=== PATIENT | female | born 1975 | race Caucasian/White ===

== ENCOUNTER 2017-04-25 19:14 | Emergency (ER) | payer BC ==
[~2017-04-25] VITALS: Ht 167.6 cm; Wt 80.3 kg
[2017-04-25] MEDS ORDERED: IPRATRPIUM/ALBUTEROL 0.5/2.5MG 3 ML NEBU. NEB ONE (19:45)
--- NOTE | 2017-04-25 20:20 | PHYS DOC ---
Past Medical History Additional Past Medical Histor: sinusitis; early stages COPD Past Surgical History: Tubal ligation Additional Past Surgical Histo: Shoulder Smoking: Cigarettes Alcohol Use: Rarely Drug Use: None Adult General Chief Complaint Chief Complaint: HYPERTENSION HPI HPI Patient is a 42 year old female who presents with elevated blood pressure. She was seen in urgent care today for sinus pressure and was sent here due to her blood pressure being elevated. She states that she's not had a history of hypertension. She was in [place] April 05 to the in the mountains. She came back and that's when her sinus pressure started. She states that since then she did consistent sinus pressure which she states she was seen a year ago by ENT for (Dr Gamez). She also has noted some chest pain intermittently and some increase in her difficulty breathing since the trip as well. No leg pain or swelling. She states that she has "early stages of emphysema". She is a heavy smoker does have a inhaler that she uses. Presently she has no chest pain. She did no visual changes, no numbness tingling or weakness to her face or external wheeze. No difficulty walking. She has been taking [id number]-[id number] sinus medications but did state that she stopped it approximately 3 days ago. Review of Systems Review of Systems Constitutional: Denies fever or chills Eyes: Denies change in visual acuity, redness, or eye pain HENT: POS nasal congestion; no sore throat Respiratory: POS cough; no hemoptysis; POS shortness of breath and wheezing Cardiovascular: intermittent chest pain GI: Denies abdominal pain, nausea, vomiting, bloody stools or diarrhea : Denies dysuria or hematuria Musculoskeletal: Denies back pain or joint pain Integument: Denies rash or skin lesions Neurologic: Denies headache, focal weakness or sensory changes. Family History Family History Hypertension and heart disease (remote) Current Medications Current Medications Current Medications Medications (Trade) Dose Ordered Sig/Cynthia Start Time Stop Time Status Last Admin Dose Admin Albuterol/ Ipratropium (Duoneb) 3 ml 1X ONCE 04/25/17 19:45 04/25/17 19:47 DC 04/25/17 20:04 3 ML Allergies Allergies Allergies Coded Allergies Type Severity Reaction Last Updated Verified No Known Drug Allergies 04/25/17 No Physical Exam Physical Exam Constitutional: Well developed, well nourished, no acute distress, non-toxic appearance. HENT: Normocephalic, atraumatic, bilateral external ears normal, oropharynx moist, no oral exudates, nose normal. Eyes: PERRLA, EOMI, conjunctiva normal, no discharge. Neck: Normal range of motion, no tenderness, supple, no stridor. Cardiovascular:Heart rate regular rhythm, no murmur Lungs & Thorax: Bilateral breath sounds equal. Coarse rhonchi and wheezing. Abdomen: Bowel sounds normal, soft, no tenderness, no masses, no pulsatile masses. Skin: Warm, dry, no erythema, no rash. Back: No tenderness, no CVA tenderness. Extremities: No tenderness, no cyanosis, no clubbing, ROM intact, no edema. Neurologic: Alert and oriented X 3, normal motor function, normal sensory function, no focal deficits noted. Psychologic: Affect normal, judgement normal, mood normal. Current Patient Data Vital Signs Vital Signs Date Time Temp Pulse Resp B/P (MAP) Pulse Ox O2 Delivery O2 Flow Rate FiO2 04/25/17 20:05 98 Room Air 04/25/17 19:29 75 18 165/97 (119) Lab Values Laboratory Tests Test 04/25/17 19:58 04/25/17 20:17 POC Urine HCG, Qualitative Hcg negative (Negative) White Blood Count 10.8 x10^3/uL (4.0-11.0) Red Blood Count 4.59 x10^6/uL (3.50-5.40) Hemoglobin 14.7 g/dL (12.0-15.5) Hematocrit 42.1 % (36.0-47.0) Mean Corpuscular Volume 92 fL (79-100) Mean Corpuscular Hemoglobin 32 pg (25-35) Mean Corpuscular Hemoglobin Concent 35 g/dL (31-37) Red Cell Distribution Width 13.4 % (11.5-14.5) Platelet Count 234 x10^3/uL (140-400) Neutrophils (%) (Auto) 59 % (31-73) Lymphocytes (%) (Auto) 32 % (24-48) Monocytes (%) (Auto) 6 % (0-9) Eosinophils (%) (Auto) 2 % (0-3) Basophils (%) (Auto) 1 % (0-3) Neutrophils # (Auto) 6.4 x10^3uL (1.8-7.7) Lymphocytes # (Auto) 3.5 x10^3/uL (1.0-4.8) Monocytes # (Auto) 0.7 x10^3/uL (0.0-1.1) Eosinophils # (Auto) 0.2 x10^3/uL (0.0-0.7) Basophils # (Auto) 0.1 x10^3/uL (0.0-0.2) D-Dimer (Billie) 0.27 ug/mlFEU (0.00-0.50) Sodium Level 139 mmol/L (136-145) Potassium Level 3.9 mmol/L (3.5-5.1) Chloride Level 103 mmol/L (98-107) Carbon Dioxide Level 29 mmol/L (21-32) Anion Gap 7 (6-14) Blood Urea Nitrogen 15 mg/dL (7-20) Creatinine 0.8 mg/dL (0.6-1.0) Estimated GFR (Cockcroft-Gault) 79.0 BUN/Creatinine Ratio 19 (6-20) Glucose Level 94 mg/dL (70-99) Calcium Level 9.0 mg/dL (8.5-10.1) Total Bilirubin 0.2 mg/dL (0.2-1.0) Aspartate Amino Transferase (AST) 18 U/L (15-37) Alanine Aminotransferase (ALT) 30 U/L (14-59) Alkaline Phosphatase 95 U/L (46-116) Creatine Kinase 71 U/L (26-192) Creatine Kinase MB (Mass) < 0.5 ng/mL (0.0-3.6) Creatine Kinase MB Relative Index 0.7 % (0-4) Troponin I Quantitative < 0.017 ng/mL (0.000-0.055) HO-Wys-R-Type Natriuretic Peptide 74 pg/mL (0-124) Total Protein 7.3 g/dL (6.4-8.2) Albumin 4.1 g/dL (3.4-5.0) Albumin/Globulin Ratio 1.3 (1.0-1.7) Laboratory Tests 04/25/17 20:17 Laboratory Tests 04/25/17 20:17 EKG EKG EKG interpreted by myself at 1950 PM shows normal sinus rhythm, rate 65, nonspecific ST changes. No ST elevation. Radiology/Procedures Radiology/Procedures Chest x-ray interpreted by myself at 2020 PM slight increase in vascular markings. Since. Normal cardiac silhouette. No pleural effusion. No pneumothorax. [facility] [address] [place] [address] IMAGING REPORT Signed PATIENT: SRIDEVI DALTON ACCOUNT: [id number] : 1975 LOCATION: ER AGE: 42 SEX: F EXAM STATUS: PRE ER ORD. PHYSICIAN: SANYA CHACON MD REASON: sinus pressure PROCEDURE: CT MAXILLOFACIAL WO CONTRAST PQRS Compliance Statement: One or more of the following individualized dose reduction techniques were utilized for this examination: 1. Automated exposure control 2. Adjustment of the mA and/or kV according to patient size 3. Use of iterative reconstruction technique CT HEAD, MAXILLOFACIAL WITHOUT CONTRAST History: SINUS PRESSURE, elevated blood pressure Comparison: None. Procedure: Axial images are obtained of the head from the skull base through the vertex without IV contrast. Helical CT imaging of the facial bones is performed without IV contrast. Findings: The ventricles and sulci are normal for the patient's age. No mass-effect, midline shift, hemorrhage or obvious acute infarction is identified. Basilar cisterns are patent. Bone windows demonstrate no significant calvarial abnormality. No acute facial bone fracture. There is a large mucous retention cyst or polyp in the left maxillary sinus inferiorly measuring about 2.8 cm. There is minimal mucosal thickening in the bilateral sphenoid sinuses. No air-fluid level is identified. Mastoid air cells are well aerated. There is mild leftward deviation of the bony nasal septum. The ostiomeatal complexes are narrow but patent. IMPRESSION: 1. No acute intracranial abnormality. 2. Large mucous retention cyst or polyp in the left maxillary sinus. No evidence of acute sinusitis. Electronically signed by: Dave Howard MD (04/25/2017 8:55 PM) [facility] DICTATED and SIGNED BY: DAVE HOWARD MD DATE: 04/25/172050 CC: SANYA CHACON MD; Roldan DO MD ~ Course & Med Decision Making Course & Med Decision Making Differential diagnosis for chest pain includes but is not limited to: Pericarditis, myocarditis, endocarditis, pneumothorax, pneumonia, aortic dissection, esophageal spasm, esophagitis, peptic ulcer disease, acute coronary syndrome, mediastinitis, Boerhaave syndrome, musculoskeletal chest wall pain, costochondritis, intercostal strain, rib fracture, pulmonary contusion, pneumonitis, pleural effusion, pericardial effusion, pericardial tamponode, and pleurisy. Duoneb dosed here. May be related to recent high altitude. At 2105 PM: CT results negative. D dimer negative. Cardiac enzymes and BNP normal. Reviewed findings with patient. She is to stop all OTC sinus/cold preparations. She can use saline nasal sprays for symptomatic relief. She does not meet criteria for antibiotic usage as she has no evidence of sinusitis on CT imaging. She was dosed once here with lisinopril 10 mg and hydrochlorothiazide 12.5 mg. She may indeed have a little fluid from her recent high-altitude visit. She currently has no evidence however of acute congestive heart failure, high-altitude sickness, or pulmonary emboli. She is to call Dr. Do in the morning to set up for re-check on her blood pressure. She understands this must be performed in the next several days. Spouse was present during this discussion as well. Also discussed tobacco cessation. MACE Scoring: History: Highly suspicious (2 points); Moderately suspicious (1 point). Slightly suspicious (0 point). EKG: ST segment depression (2 points). Nonspecific repolarization disturbance ( 1 point). normal (0 point) Age: Greater than 65 (2 points), 65-45 (1 point); less than 45 years old (0 points). Risk factors:> 3 risk factors (2 points), 1-2 risk factors (one point), no risk factors (0 point). Troponin: > 2 times normal (2 points), 1-2 times normal (1 point) normal limits (0 point) Total score: ___1___ Score % pts MACE/n MACE Policy 0-3: 32% 1.9% 0.05% Discharge 4-6: 51% 413/3136 13% 1.3% Observation Risk management 7-10: 17% 518/1045 50% 2.8% Observation Treatment, CAGb DAYANARA score for NSTEMI: Age 65: No=0; Yes=1 3 CAD risk factors: Family history of CAD, hypertension, hypercholesterolemia, diabetes, family history of CAD, or current smoker: No=0; Yes=1 Known CAD (stenosis 50%: No=0; Yes=1 ASA use in past 7 days: No=0; Yes=1 Severe angina ( 2 episodes in 24 hrs): No=0; Yes=[address] changes 0.5m: No=0; Yes=1 Positive cardiac marker: No=0; Yes=1 Score:1 PERC RULE Criteria: Age < than 50 years-YES Heart rate < 100-YES Oxygen saturation > 95%-YES No hemoptysis-YES No estrogen use-YES No prior DVT or PE-YES No unilateral leg swelling-YES No surgery or trauma requiring hospitalization within the prior 4 weeks (Travel) I have spoken with the patient and/or caregivers. I have explained the patient' s condition, diagnosis and treatment plan based on the information available to me at this time. I have answered the patient's and/or caregiver's questions and addressed any concerns. The patient and/or caregivers have as good an understanding of the patient's diagnosis, condition and treatment plan as can be expected at this point. The patient's condition is stable and appropriate for discharge from the emergency department. The patient will pursue further outpatient evaluation with the primary care physician or other designated or consulting physician as outlined in the discharge instructions. The patient and/or caregivers are agreeable to this plan of care and follow-up instructions have been explained in detail. The patient and/or caregivers have received these instructions in written format and have expressed an understanding of the discharge instructions. The patient and/or caregivers are aware that any significant change in condition or worsening of symptoms should prompt an immediate return to this or the closest emergency department or a call to 911. Dragon Disclaimer Dragon Disclaimer This electronic medical record was generated, in whole or in part, using a voice recognition dictation system. Departure Departure Impression: Primary Impression: Elevated blood pressure reading Additional Impression: Sinus congestion Disposition: 01 HOME, SELF-CARE Condition: STABLE Referrals: Roldan DO MD (PCP) Additional Instructions: YOUR BLOOD PRESSURE WAS ELEVATED HERE. YOUR TESTS HERE SHOW NO ACUTE CARDIAC OR PULMONARY EVENT. YOU WERE GIVEN A ONE TIME DOSE OF MEDICATIONS TONIGHT TO LOWER YOUR PRESSURE. CALL DR DO IN THE AM TO SET UP A REPEAT EXAM AND BLOOD PRESSURE READING. DO NOT TAKE ANYMORE OVER THE COUNTER SINUS MEDS. YOU CAN USE SALINE SINUS RINSES. Problem Qualifiers SANYA CHACON MD Apr 25, 2017 20:20
[2017-04-25 20:23] LABS: BASO # 0.1 x10^3/uL (0.0-0.2); BASO % 1 % (0-3); EOS % 2 % (0-3); HEMATOCRIT 42.1 % (36.0-47.0); HEMOGLOBIN 14.7 g/dL (12.0-15.5); LYMPH # 3.5 x10^3/uL (1.0-4.8); LYMPH % 32 % (24-48); MEAN CORPUSCULAR HEMOGLOBIN 32 pg (25-35); MEAN CORPUSCULAR HGB CONC 35 g/dL (31-37); MEAN CORPUSCULAR VOLUME 92 fL (79-100); MONO % 6 % (0-9); NEUT % 59 % (31-73); PLATELET COUNT 234 x10^3/uL (140-400); RED BLOOD COUNT 4.59 x10^6/uL (3.50-5.40); RED CELL DISTRIBUTION WIDTH 13.4 % (11.5-14.5); WHITE BLOOD COUNT 10.8 x10^3/uL (4.0-11.0)
[2017-04-25 20:49] LABS: ALBUMIN 4.1 g/dL (3.4-5.0); ALBUMIN/GLOBULIN RATIO 1.3 (1.0-1.7); CREATININE 0.8 mg/dL (0.6-1.0); POTASSIUM 3.9 mmol/L (3.5-5.1); TOTAL BILIRUBIN 0.2 mg/dL (0.2-1.0); TOTAL PROTEIN 7.3 g/dL (6.4-8.2)
[2017-04-25 20:52] LABS: CREATINE KINASE 71 U/L (26-192)
[2017-04-25 20:54] LABS: CKMB MASS < 0.5 ng/mL (0.0-3.6)
--- NOTE | 2017-04-25 20:58 | RAD ---
RS Compliance Statement: One or more of the following individualized dose reduction techniques were utilized for this examination: 1. Automated exposure control 2. Adjustment of the mA and/or kV according to patient size 3. Use of iterative reconstruction technique CT HEAD, MAXILLOFACIAL WITHOUT CONTRAST History: SINUS PRESSURE, elevated blood pressure Comparison: None. Procedure: Axial images are obtained of the head from the skull base through the vertex without IV contrast. Helical CT imaging of the facial bones is performed without IV contrast. Findings: The ventricles and sulci are normal for the patient's age. No mass-effect, midline shift, hemorrhage or obvious acute infarction is identified. Basilar cisterns are patent. Bone windows demonstrate no significant calvarial abnormality. No acute facial bone fracture. There is a large mucous retention cyst or polyp in the left maxillary sinus inferiorly measuring about 2.8 cm. There is minimal mucosal thickening in the bilateral sphenoid sinuses. No air-fluid level is identified. Mastoid air cells are well aerated. There is mild leftward deviation of the bony nasal septum. The ostiomeatal complexes are narrow but patent. IMPRESSION: 1. No acute intracranial abnormality. 2. Large mucous retention cyst or polyp in the left maxillary sinus. No evidence of acute sinusitis. Electronically signed by: Dave Howard MD (04/25/2017 8:55 PM) [facility]
[2017-04-25] MEDS ORDERED: LISINOPRIL 10 MG TABLET PO ONE (21:15)
[2017-04-25] MEDS ORDERED: hydroCHLOROthiazide 12.5 MG CAPSULE PO ONE (21:15)
[2017-04-25 21:20] VITALS: BP 156/94
--- NOTE | 2017-04-26 08:02 | RAD ---
Indication: Hypertension. Intermittent chest pain for 3 to 4 days. Technique: Upright portable chest radiograph was obtained. No comparison is available. Findings: The lungs are clear. The cardiopulmonary silhouette is within normal limits. The bony structures are intact. Impression: No active pulmonary disease.
--- NOTE | 2017-04-26 08:12 | EKG ---
[facility] [address] [place] [address] Test Date: 2017-04-25 Test Time: 19:50:55 Pat Name: SRIDEVI DALTON Department: Room: Gender: F Deicer Tester: LULY : 1975 Requested By: SANYA CHACON Order Number: [id number] Reading MD: Measurements Intervals [place] Rate: 65 P: 46 ID: [id number] QRS: 48 QRSD: 82 T: 66 QT: 396 QTc: 417 Interpretive Statements SINUS RHYTHM QRS(T) CONTOUR ABNORMALITY CANNOT RULE OUT ANTEROSEPTAL MYOCARDIAL DAMAGE RI6.01 Unconfirmed report No previous ECG available for comparison
== END 2017-04-25 21:35 | disposition home or self-care (01) ==
LOC: ER 19:14
DX: I10 Essential (primary) hypertension (principal); R09.81 Nasal congestion; J44.9 Chronic obstructive pulmonary disease, unspecified; F17.210 Nicotine dependence, cigarettes, uncomplicated
CPT/HCPCS: 36415; 70450; 70486; 71010; 80053; 81025; 82553; 83880; 84484; 85025; 85379; 93005; 94250; 94640; 99285; J7620

== ENCOUNTER → 2018-03-24 | Outpatient (CLI) | payer BC ==
--- NOTE | 2018-03-24 13:47 | KCIC ---
CT of the abdomen and pelvis with oral contrast only 03/24/2018 INDICATION: Generalized abdominal pain. COMPARISON STUDY: None available TECHNIQUE: Multidetector CT imaging of the abdomen and pelvis was obtained following the administration of enteric contrast. FINDINGS: Visualized lung bases are unremarkable. Calcified granuloma noted in left lower lobe. The liver has an unremarkable noncontrast enhanced appearance. There is a large calcified stone in the gallbladder lumen. The gallbladder wall appears to be possibly thickened. A scant amount of pericholecystic fluid is difficult to completely exclude. Findings may represent acute calculus cholecystitis. Correlate with clinical findings. The adrenal glands are unremarkable. The spleen is within normal limits. Evaluation of the kidneys is limited without contrast. The right kidney is lobulated in contour which is nonspecific. Left kidney is unremarkable. The pancreas is unremarkable. There is no bowel obstruction. The appendix is unremarkable. The bladder is unremarkable. There is a bilobulated cystic structure posterior to the right adnexa measuring approximately 1.5 cm, and 1.6 cm which may represent a small pelvic inclusion cyst. The superior aspect of this structure is noted to abut the rectum. Lymphadenopathy is considered less likely given the attenuation characteristics. No significant free fluid or free air is seen in the abdomen or pelvis. IMPRESSION: 1.Large peripherally calcified stone within the gallbladder lumen. Possible gallbladder wall thickening. Trace pericholecystic fluid not excluded. Correlate with clinical evidence of acute calculus cholecystitis. Consider ultrasound for further evaluation as clinically indicated. 2. Small multilobulated cystic structure posterior to the right adnexa. Findings may represent a pelvic inclusion cyst. Lymphadenopathy is considered less likely. Ultrasound versus contrast enhanced exam of the pelvis may be helpful. Findings discussed with the ordering physician at 1:[address] DOSING PQRS STATEMENT: One or more of the following individualized dose reduction techniques were utilized for this examination: 1. Automated exposure control 2. Adjustment of the mA and/or kV according to patient size 3. Use of iterative reconstruction technique Electronically signed by: Gael Rowe MD (03/24/2018 1:44 PM) [facility]
== END | disposition home or self-care (01) ==
LOC: KCIC CT 10:50
PROVIDERS: ATTEND Family Medicine
DX: K80.20 Calculus of gallbladder without cholecystitis without obstruction (principal); I10 Essential (primary) hypertension; J44.9 Chronic obstructive pulmonary disease, unspecified; N83.8 Other noninflammatory disorders of ovary, fallopian tube and broad ligament; Z87.891 Personal history of nicotine dependence
CPT/HCPCS: 74176

== ENCOUNTER 2018-04-06 07:34 | Day surgery (SDC) | payer BC ==
[~2018-04-06] VITALS: Ht 167.6 cm; Wt 76.2 kg
[~2018-04-06 07:34] MED LIST: BUPIVAC MPF-EPI 0.5%-1:200000 30 ML VIAL. ONE; HYDROmorphone 2 MG/ML VIAL IV PRN; IOHEXOL 300 MG/ML 100ML VIAL. ONE; IV RINGERS,LACTATED 1000ML 1,000 ML IV SCH; LIDOCAINE 1% PF 2 ML VIAL. ID PRN; MORPHINE SULFATE 2 MG/ML VIAL. IV PRN; ONDANSETRON PF 4 MG/2 ML VIAL. IV PRN; PROCHLORPERAZINE 10 MG/2 ML VIAL. IV PRN; SURGICEL HEMOSTAT 4X8 EACH. ONE; fentaNYL PF VIAL 100 MCG/2 ML VIAL IV PRN
[2018-04-06] MEDS ORDERED: LISI1TAB3 PO (08:14)
[2018-04-06] MEDS ORDERED: RANI150T2 PO (08:14)
[2018-04-06] MEDS ORDERED: BUDE10.2 IH (08:14)
[2018-04-06] MEDS ORDERED: ALBU8.5H8 IH (08:14)
[2018-04-06 08:24] LABS: U PREG PATIENT NEGATIVE (NEG)
[2018-04-06] MEDS ORDERED: ONDANSETRON PF 4 MG/2 ML VIAL. ONE (08:27)
[2018-04-06] MEDS ORDERED: fentaNYL PF VIAL 100 MCG/2 ML VIAL ONE ×2 (08:27→09:54)
[2018-04-06] MEDS ORDERED: DEXAMETHASONE SOD PHOS 20 MG/5 ML VIAL. ONE (08:27)
[2018-04-06] MEDS ORDERED: ROCURONIUM 50 MG/5 ML VIAL. ONE (08:27)
[2018-04-06] MEDS ORDERED: PROPOFOL 20 ML IV ONE (08:27)
[2018-04-06] MEDS ORDERED: MIDAZOLAM HCL/PF 2 MG/2 ML VIAL. ONE (08:27)
[2018-04-06] MEDS ORDERED: ESMOLOL 100 MG/10 ML VIAL. IV ONE (08:53)
[2018-04-06] MEDS ORDERED: NEOSTIGMINE METHYLSULFATE 5 MG/5 ML SYRINGE. ONE (09:17)
[2018-04-06] MEDS ORDERED: GLYCOPYRROLATE 1 MG/5 ML VIAL. ONE (09:18)
[2018-04-06] MEDS ORDERED: SEVOFLURANE 61 TO 120 MINUTES. IH ONE (09:20)
--- NOTE | 2018-04-06 09:38 | PDOC4 ---
Operative Note Operative Note Date: 04/06/2018 Preoperative diagnosis: Chronic cholecystitis with cholelithiasis Postoperative diagnosis: Same Procedure: Laparoscopic cholecystectomy Surgeon: Maury Specimen: Gallbladder Dictation: Patient is a 43-year-old female who's had right upper quadrant abdominal pain ultrasound showing gallstones procedure of laparoscopic cholecystectomy was explained to the patient detail was benefits were also discussed including bleeding infection alternatives to this procedure also discussed with patient seemed understanding gave both verbal and written consent had procedure performed. Patient was taken to the operating room placed in supine position general anesthesia was initiated once patient was asleep and intubated her abdomen was prepped and draped usual sterile fashion using ChloraPrep and area just below the umbilicus was injected with quarter percent Marcaine with epinephrine vision was made lead blade scalpel varies needle was placed within the abdomen creating pneumoperitoneum once this complete a 11 mm port was placed and a 5 mm camera was placed within the abdomen which was inspected no other at maladies were noted at this point a 5 mm port was placed in the epigastrium a second port was placed in the right lateral abdomen and one in the right mid abdomen. The dome of the gallbladder's grasped retracted cephalad the infundibulum of the gallbladder's grasped retracted laterally exposing the triangle adherent tissues of the triangle are taken down exposing the cystic duct and cystic artery both were doubly clipped and transected the gallbladder was taken off the liver with hook left cautery placed in Endo Catch bag and removed from the umbilicus right upper quadrant was irrigated and suctioned dry hemostasis deemed to be appropriate and the pneumoperitoneum was reduced. Defect at the umbilicus closed [id number] 0 Vicryl suture and the skin was approximated all port sites 4 septic or Monocryl Mastisol Steri-Strips and island dressings were applied. Patient was awakened and expanded in the operating room taken recovery in stable condition all sponge instrument needle counts listed as correct estimated blood loss 10 mL EDWIGE ALBRIGHT MD Apr 06, 2018 09:38
--- NOTE | 2018-04-06 09:39 | DISCH ---
DISCHARGE INSTRUCTIONS Condition on Discharge Condition on Discharge: Stable Activity After Discharge Activity Instructions for Disc: Avoid exertion Other activity instructions: no lifting greater than 20 pounds for 2 weeks Diet after Discharge Diet after Discharge: Low Fat Wound Incision Care Other wound/incision instructi: a shower in 24 hours Contacting the DREnder after DC Call your doctor for: If your condition worsens Follow-Up Follow up with: after Maury in 2 weeks EDWIGE ALBRIGHT MD Apr 06, 2018 09:39
[2018-04-06] MEDS ORDERED: oxyCODONE/APAP 5/325 1 TAB TABLET PO ONE ×2 (10:00)
[2018-04-06 10:33] VITALS: BP 154/74
--- NOTE | 2018-04-10 10:08 | PATHOLOGY ---
[facility] Accession Number: [id number] . 01 Material submitted: . GALLBLADDER . 01 Clinician provided ICD-10: K81.9 . 01 Clinical history: . Cholecystitis . 02 Diagnosis: Gallbladder, laparoscopic cholecystectomy: - Cholelithiasis. - Chronic cholecystitis. - Reactive changes of gallbladder neck lymph node. [facility]/04/07/2018 . 02 Comment: There is no evidence of malignancy. (JPM:[facility] 04/07/2018) . 02 Electronically signed: . Heath Womack MD, Pathologist NPI- [id number] . 01 Gross description: . The specimen is received in formalin, labeled "Carito Castro, gallbladder", is a distended 7.4 x 3.5 x 2.5 cm gallbladder. The serosa is monroy-purple and glistening. Opening the gallbladder reveal the lumen filled with minimal yellow-monroy viscous bile and an oval irregularly surfaced brown-yellow calculus measuring 2.7 x 2.2 x 1.6 cm. The mucosa is hyperemic. The gallbladder wall is fibrous and is up to 0.1 cm thick. No discrete masses are identified. Hyperbaric Technician tissue is submitted in A1. (SWS; 04/06/2018) SHS/SHS . 02 Pathologist provided ICD-10: K80.10 . 02 CPT . 746892 Specimen Comment: A courtesy copy of this report has been sent to Specimen Comment: [phone]. Specimen Comment: Report sent to Performed at: 01 [facility] [address], [place], [place] [id number] MD Carlo Kaiser MD Phone: [phone] Performed at: 02 [facility] [address], [place] [id number] MD Heath Womack MD Phone: [phone]
== END 2018-04-06 10:33 | disposition home or self-care (01) ==
LOC: SURG 07:34
PROVIDERS: ATTEND Surgery
DX: K80.10 Calculus of gallbladder with chronic cholecystitis without obstruction (principal); K21.9 Gastro-esophageal reflux disease without esophagitis; J44.9 Chronic obstructive pulmonary disease, unspecified; E55.9 Vitamin D deficiency, unspecified; Z98.51 Tubal ligation status; Z79.899 Other long term (current) drug therapy; Z79.2 Long term (current) use of antibiotics; Z98.890 Other specified postprocedural states; Z80.8 Family history of malignant neoplasm of other organs or systems; F17.210 Nicotine dependence, cigarettes, uncomplicated
CPT/HCPCS: 47562; 81025; 88304; J0690; J1100; J2250; J2405; J2704; J2710; J3010; J3490; J7030; J7120; Q9967

== ENCOUNTER 2018-08-01 11:29 | Emergency (ER) | payer BC ==
[~2018-08-01] VITALS: Ht 167.6 cm; Wt 76.2 kg
[~2018-08-01 11:29] MED LIST changes: +ALBU2.5V8 IH; +BUDE10.2 IH; -BUPIVAC MPF-EPI 0.5%-1:200000 30 ML VIAL. ONE; -HYDROmorphone 2 MG/ML VIAL IV PRN; -IOHEXOL 300 MG/ML 100ML VIAL. ONE; -IV RINGERS,LACTATED 1000ML 1,000 ML IV SCH; -LIDOCAINE 1% PF 2 ML VIAL. ID PRN; +LISI1TAB3 PO; -MORPHINE SULFATE 2 MG/ML VIAL. IV PRN; -ONDANSETRON PF 4 MG/2 ML VIAL. IV PRN; -PROCHLORPERAZINE 10 MG/2 ML VIAL. IV PRN; +RANI150T2 PO; -SURGICEL HEMOSTAT 4X8 EACH. ONE; -fentaNYL PF VIAL 100 MCG/2 ML VIAL IV PRN
[2018-08-01 11:35] VITALS: BP 157/76
[2018-08-01] MEDS ORDERED: HYDROcodone/APAP 5/325MG 1 TAB TABLET PO ONE (12:00)
[2018-08-01] MEDS ORDERED: HYDR-3164 PO (12:08)
[2018-08-01] MEDS ORDERED: SILV20CR14 TP (12:08)
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
== END 2018-08-01 12:17 | disposition home or self-care (01) ==
LOC: ER 11:29
DX: T23.201A Burn of second degree of right hand, unspecified site, initial encounter (principal); T26.02XA Burn of left eyelid and periocular area, initial encounter; T26.01XA Burn of right eyelid and periocular area, initial encounter; I10 Essential (primary) hypertension; J44.9 Chronic obstructive pulmonary disease, unspecified; T20.111A Burn of first degree of right ear [any part, except ear drum], initial encounter; T20.14XA Burn of first degree of nose (septum), initial encounter; X08.8XXA Exposure to other specified smoke, fire and flames, initial encounter; Y93.89 Activity, other specified; Y92.89 Other specified places as the place of occurrence of the external cause; Y99.8 Other external cause status
CPT/HCPCS: 99283

== ENCOUNTER → 2019-06-27 | Outpatient (CLI) | payer BC ==
[~2019-06-27] MED LIST changes: +HYDR-3164 PO; +LISI1TAB23 PO; -LISI1TAB3 PO; +SILV20CR14 TP
--- NOTE | 2019-06-27 16:28 | KCIC ---
Bilateral digital screening mammograms: Reason for examination: Routine screening. Comparison is made to previous study dated 09/11/2014. Interpretation was made with the benefit of CAD. The skin and nipples show no abnormalities. No abnormal axillary lymph nodes are seen. The breast parenchyma shows scattered fibroglandular density. (Breast density: Category B.) There are no dominant masses, suspicious calcifications or architectural distortions. Impression: No evidence of malignancy. Recommend routine screening. BI-RADS Category 2: Benign. "Our facility is accredited by the [employer] Mammography [employer]." This patient's information has been entered into a reminder system for the patient to be notified with the results of her examination and a target date for the next mammogram. Electronically signed by: Breanna May MD (06/27/2019 4:25 PM) [id number]
== END | disposition home or self-care (01) ==
LOC: KCIC MAMMO 13:01
PROVIDERS: ATTEND Family Medicine
DX: Z12.31 Encounter for screening mammogram for malignant neoplasm of breast (principal); I10 Essential (primary) hypertension; K21.9 Gastro-esophageal reflux disease without esophagitis; F17.200 Nicotine dependence, unspecified, uncomplicated; Z98.51 Tubal ligation status
CPT/HCPCS: 77067

== ENCOUNTER → 2021-02-11 | Outpatient (CLI) | payer BC ==
--- NOTE | 2021-02-11 11:08 | KCIC ---
Bilateral digital screening mammograms: Reason for examination: Routine screening. Comparison is made to previous studies dated 06/27/2019 and 09/11/2014. Interpretation was made with the benefit of CAD. The skin and nipples show no abnormalities. No abnormal axillary lymph nodes are seen. The breast par enchyma shows scattered fibroglandular density. (Breast density: Category B.) There is a 7 mm nodule located in the 6:00 position of the left breast 4 cm from the nipple. Further evaluation with ultraso und is recommended. There are no other dominant masses, suspicious calcifications or architectural di stortions. Impression: 7 mm nodule in the 6:00 position of the left breast 4 cm from the nipple. Recommend further evaluatio n with ultrasound. BI-RADS Category 0: Incomplete. Needs additional imaging evaluation. "Our facility is accredited by the [employer] Mammography [employer]." This patient's information has been entered into a reminder system for the patient to be notified wit h the results of her examination and a target date for the next mammogram. Electronically signed by: Breanna May MD (02/11/2021 11:06 AM) [email or web address]
== END ==
LOC: KCIC MAMMO 08:13
PROVIDERS: ATTEND Family Medicine
DX: Z12.31 Encounter for screening mammogram for malignant neoplasm of breast (principal)
CPT/HCPCS: 77067

== ENCOUNTER → 2021-02-18 | Outpatient (CLI) | payer BC ==
--- NOTE | 2021-02-18 11:16 | KCIC ---
Left breast ultrasound: Reason for examination: Nodular density on screening mammogram. Comparison is made to mammographic exam dated 02/11/2021. Ultrasound examination of the left breast and axilla was performed. At the 6:00 position 2.5 cm from the nipple, there is an 8.6 mm cyst. No other cystic or solid nodule s are seen. No abnormal appearing lymph nodes are seen in the axilla. IMPRESSION: 8.6 mm cyst at the 6:00 position corresponds to the area of mammographic concern. No suspicious abnor malities are seen. Recommend routine mammographic follow-up. BI-RADS Category 2: Benign. "Our facility is accredited by the [employer] Mammography [employer]." This patient's information has been entered into a reminder system for the patient to be notified wit h the results of her examination and a target date for the next mammogram. Electronically signed by: Breanna May MD (02/18/2021 11:13 AM) [email or web address]
== END ==
LOC: KCIC US 09:56
PROVIDERS: ATTEND Family Medicine
DX: N60.02 Solitary cyst of left breast (principal)
CPT/HCPCS: 76641